=== PATIENT | female | born 1930 | race Caucasian/White ===

== ENCOUNTER 2017-09-17 16:16 | Emergency (ER) | payer OTHER ==
[~2017-09-17] VITALS: Ht 157.5 cm; Wt 48.0 kg
[~2017-09-17 16:16] MED LIST: ALT10 PO; AMLO-110 PO; ASPEC325 PO; CALC-354 PO; CLOP1TAB15 PO; DXY100 PO; FLUT0.0529 NAE; HYDC25 PO; LEVO88TA PO; LORA0.5T12 PO; LPT/40 PO; LXP10 PO; METO50TA16 PO; NITR0.4S UT; POTA10CA28 PO
[2017-09-17 16:27] VITALS: TEMP 37.2; Ht 157.5 cm; Wt 48.0 kg
[2017-09-17 16:31] VITALS: O2SAT 96
[2017-09-17 16:51] LABS: HEMATOCRIT 43.7 % (37-47); MEAN CELL VOLUME 95.8 fL (80-100); MEAN CORPUSCULAR HEMOGLOBIN 32.7 pg (25-34); MEAN CORPUSCULAR HGB CONC 34.1 g/dl (32-36); MEAN PLATELET VOLUME 11.1 fL (7.4-10.4); PLATELET COUNT 241 K/uL (130-400); RED BLOOD COUNT 4.56 M/uL (4.2-5.4); WHITE BLOOD COUNT 12.11 K/uL (4.8-10.8)
--- NOTE | 2017-09-17 16:57 | DIAGNOSTIC IMAGING REPORT ---
CHEST ONE VIEW PORTABLE CLINICAL HISTORY: EVALUATE ALTERED MENTAL STATUS/WEAKNESS COMPARISON STUDY: 07/29/2015 FINDINGS: Diffuse interstitial change throughout both hemithoraces considered chronic. Prior median sternotomy. No evidence for significant cardiac enlargement. Diaphragms smooth. IMPRESSION: Chronic postoperative and chronic interstitial change. No acute process. The above report was generated using voice recognition software. It may contain grammatical, syntax or spelling errors. Electronically signed by: Paulo Irene M.D. 09/17/2017 4:56 PM Dictated Date/Time: 09/17/2017 4:55 PM
[2017-09-17 17:15] LABS: BUN/CREATININE RATIO 23.6 (10-20); CALCIUM 8.7 mg/dl (8.5-10.1); CREATININE 0.85 mg/dl (0.60-1.20); POTASSIUM 3.6 mmol/L (3.5-5.1)
[2017-09-17 17:26] LABS: ALB/GLOB RATIO 0.8 (0.9-2)
--- NOTE | 2017-09-17 17:37 | EMERGENCY ROOM VISIT NOTE ---
History Report prepared by Danilo: Rusty Fu Under the Supervision of: Dr. Suleiman Hinton M.D. First contact with patient: 16:26 Chief Complaint: PALPITATIONS Stated Complaint: PALPITATION, NUMBNESS IN L ARM History of Present Illness The patient is a 87 year old female who presents to the Emergency Room with complaints of an episode of heart palpations occurring 2.5 hours ago. Her palpitations improved en route to the ED. She estimates that her palpitations were present for about two hours. The patient states that she also experienced tingling in her back, shoulders and bilateral arms as well as SOB during the episode. She states that she was sitting and watching TV when her symptoms began. The patient has a history of similar symptoms with uncertain cause. She states that her heart rate did not feel irregular. She has a history of CAD, carotid stenosis, OR, CABG, and HTN. The patient states that she has had some generalized weakness over the past few days. Pre-hospital ECG performed by EMS team demonstrates a fib with a rate of 107 bpm. Diffuse non-specific change and LVH seen. No acute ischemic changes seen. Source of History: patient Onset: 2.5 hours ago Symptom Intensity: about two hours Quality: other (heart palpitations) Timing: other (episode) Associated Symptoms: + SOB, + weakness (generalized ) Note: Additional symptoms: bilateral arm tingling. Review of Systems See HPI for pertinent positives & negatives. A total of 10 systems reviewed and were otherwise negative. Past Medical & Surgical Medical Problems: (1) Asthma (2) Bowel obstruction (3) CAD (coronary artery disease) (4) Carotid stenosis, non-symptomatic (5) Cervical osteoarthritis (6) History of open heart surgery (7) Hyperlipidemia (8) Hypertension (9) Hypothyroidism (10) Osteoporosis (11) Pneumonia Surgical Problems: (1) Hx of CABG (2) S/P appendectomy (3) S/P coronary artery stent placement (4) S/p decompression of small bowel Family History No pertinent family history stated. Social History Smoking Status: Never Smoker Marital Status: Current/Historical Medications Scheduled Amlodipine (Norvasc), 5 MG PO DAILY Atorvastatin (Lipitor), 40 MG PO DAILY Calcium Carbonate-Cholecalcife (Caltrate 600+D), 1 TABLET PO BID Clopidogrel (Plavix), 75 MG PO DAILY Doxycycline Hyclate (Doxycycline Hyclate), 1 CAP PO BID Escitalopram Oxalate (Escitalopram Oxalate), 5 MG PO QAM Hydrochlorothiazide (Hydrochlorothiazide), 1 TAB PO DAILY Metoprolol Tartrate (Lopressor) (Lopressor), 100 MG PO BID Nitroglycerin (Nitrostat), 0.4 MG UT PRN Potassium Chloride (Micro-K Ext Rel), 20 MEQ PO DAILY Ramipril (Ramipril), 1 CAP PO DAILY Scheduled PRN Lorazepam (Lorazepam), 0.5 MG PO TID PRN Miscellaneous Medications Aspirin (Aspirin Ec), 325 MG PO Fluticasone Propionate (Nasal) (Flonase Allergy Relief) Allergies Coded Allergies: Vanilla (Unverified Allergy, Severe, ALL CANDLES - CANT BREATHE, 09/17/17) Nitrofurantoin (Verified Allergy, Unknown, -, 09/17/17) Tetanus Toxoid (Verified Allergy, Unknown, -, 09/17/17) Uncoded Allergies: ? WATER PILL (Allergy, Unknown, 05/24/04) Physical Exam Vital Signs Date Time Temp Pulse Resp B/P (MAP) Pulse Ox O2 Delivery O2 Flow Rate FiO2 09/17/17 19:23 52 20 148/81 96 Room Air 09/17/17 18:11 60 20 172/87 96 Room Air 09/17/17 16:32 66 09/17/17 16:31 96 Room Air 09/17/17 16:27 37.2 64 18 177/79 96 Room Air Physical Exam GENERAL: Patient is in no acute distress. HEENT: No acute trauma, normocephalic atraumatic, mucous membranes moist, no nasal congestion, no scleral icterus. NECK: No stridor, no adenopathy, no meningismus, trachea is midline. LUNGS: Crackles at the right base. No wheezing. Breath sounds equal. No respiratory distress. HEART: 2/6 systolic murmur with an irregular rhythm and a normal rate. ABDOMEN: Soft, nontender, bowel sounds positive, no hernias, no peritonitis. EXTREMITIES: No cyanosis or edema, full range of motion of all the joints without pain or difficulty, no signs for acute trauma. NEUROLOGIC: Oriented x 3, no acute motor or sensory deficits, no focal weakness. SKIN: No rash, no jaundice, no diaphoresis. Medical Decision & Procedures ER Provider Diagnostic Interpretation: Radiology results as stated below per my review and radiologist interpretation: CHEST ONE VIEW PORTABLE FINDINGS: Diffuse interstitial change throughout both hemithoraces considered chronic. Prior median sternotomy. No evidence for significant cardiac enlargement. Diaphragms smooth. IMPRESSION: Chronic postoperative and chronic interstitial change. No acute process. The above report was generated using voice recognition software. It may contain grammatical, syntax or spelling errors. Electronically signed by: Paulo Irene M.D. 09/17/2017 4:56 PM Laboratory Results 09/17/17 16:40 Red Blood Count 4.56, Mean Corpuscular Volume 95.8, Mean Corpuscular Hemoglobin 32.7, Mean Corpuscular Hemoglobin Concent 34.1, Mean Platelet Volume 11.1, Neutrophils (%) (Auto) 42.0, Lymphocytes (%) (Auto) 46.2, Monocytes (%) (Auto) 8.3, Eosinophils (%) (Auto) 3.1, Basophils (%) (Auto) 0.2, Neutrophils # (Auto) 5.07, Lymphocytes # (Auto) 5.60, Monocytes # (Auto) 1.00, Eosinophils # (Auto) 0.38, Basophils # (Auto) 0.03 09/17/17 16:40 Test 09/17/17 16:40 09/17/17 17:40 09/17/17 18:44 White Blood Count 12.11 K/uL (4.8-10.8) Red Blood Count 4.56 M/uL (4.2-5.4) Hemoglobin 14.9 g/dL (12.0-16.0) Hematocrit 43.7 % (37-47) Mean Corpuscular Volume 95.8 fL (80-100) Mean Corpuscular Hemoglobin 32.7 pg (25-34) Mean Corpuscular Hemoglobin Concent 34.1 g/dl (32-36) Platelet Count 241 K/uL (130-400) Mean Platelet Volume 11.1 fL (7.4-10.4) Neutrophils (%) (Auto) 42.0 % Lymphocytes (%) (Auto) 46.2 % Monocytes (%) (Auto) 8.3 % Eosinophils (%) (Auto) 3.1 % Basophils (%) (Auto) 0.2 % Neutrophils # (Auto) 5.07 K/uL (1.4-6.5) Lymphocytes # (Auto) 5.60 K/uL (1.2-3.4) Monocytes # (Auto) 1.00 K/uL (0.11-0.59) Eosinophils # (Auto) 0.38 K/uL (0-0.5) Basophils # (Auto) 0.03 K/uL (0-0.2) RDW Standard Deviation 46.3 fL (36.4-46.3) RDW Coefficient of Variation 13.4 % (11.5-14.5) Immature Granulocyte % (Auto) 0.2 % Immature Granulocyte # (Auto) 0.03 K/uL (0.00-0.02) Nucleated RBC Absolute Count (auto) 0.06 K/uL (0-0) Nucleated Red Blood Cells % 0.5 % Anion Gap 6.0 mmol/L (3-11) Est Creatinine Clear Calc Drug Dose 34.7 ml/min Estimated GFR () 70.9 Estimated GFR (Non- 61.2 BUN/Creatinine Ratio 23.6 (10-20) Calcium Level 8.7 mg/dl (8.5-10.1) Magnesium Level 2.0 mg/dl (1.8-2.4) Total Bilirubin 0.3 mg/dl (0.2-1) Aspartate Amino Transf (AST/SGOT) 20 U/L (15-37) Alanine Aminotransferase (ALT/SGPT) 32 U/L (12-78) Alkaline Phosphatase 113 U/L (45-117) Total Protein 7.3 gm/dl (6.4-8.2) Albumin 3.2 gm/dl (3.4-5.0) Globulin 4.1 gm/dl (2.5-4.0) Albumin/Globulin Ratio 0.8 (0.9-2) Thyroid Stimulating Hormone (TSH) 3.000 uIu/ml (0.300-4.500) Free Thyroxine 1.40 ng/dl (0.80-1.60) Prothrombin Time 10.5 SECONDS (9.0-12.0) Prothromb Time International Ratio 1.0 (0.9-1.1) Activated Partial Thromboplast Time 24.3 SECONDS (21.0-31.0) Partial Thromboplastin Ratio 0.9 Bedside Troponin I < 0.030 ng/ml (0-0.045) Laboratory results reviewed by me. ECG Indication: palpitations Rate (beats per minute): 62 Rhythm: sinus rhythm Findings: PVC, other (Non-specific ST changes diffusely. LVH. ) Change: Pre-hospital ECG performed by EMS team demonstrates a fib with a rate of 107 bpm. Diffuse non-specific change and LVH seen. No acute ischemic changes seen. ED Course 162: The patient was evaluated in room A2. A complete history and physical exam was performed. 1849: I checked in on the patient. She is resting comfortably and has no complaints. 1914: Reevaluated the patient. Discussed results and discharge instructions: she verbalized understanding and agreement. The patient is ready for discharge. Medical Decision The patient is a 87 year old female who presents to the ED with complaints of an episode of heart palpitations. Differential diagnoses considered include A- fib/A-flutter, electrolyte imbalance, anemia, cardiac ischemia, and OR. There is a mild leukocytosis, this could be consistent with infection or just the stress of today's events. No worrisome anemia. No significant electrolyte abnormalities, kidney failure or hepatitis. There was no coagulopathy. The patient appears to be in a euthyroid state. Chest film shows some chronic findings, no CHF or pneumonia. EKG shows a sinus rhythm with a PVC. There was LVH present. Cardiac enzyme testing 2 is not consistent with acute cardiac injury. The EKG performed by EMS prior to arrival at the ED does demonstrate a rapid A. fib. The patient has been here for several hours. There has been no recurrence of her A. fib. She feels at baseline. I discussed the case with cardiology on- call. No change in her medications for now. She will be seen in the cardiology office this week. The patient was encouraged to return here for any worsening symptoms or return of symptoms. I do think the rapid heart rate caused her shortness of breath and shoulder/back numbness. Medication Reconcilliation Current Medication List: was personally reviewed by me Blood Pressure Screening Patient's blood pressure: Elevated blood pressure Blood pressure disposition: Referred to PCP Consults Time Called: [phone] Consulting Physician: Dr. Judd -Cardiology Returned Call: [phone] Discussed the patient's case. Dr. Judd feels that the patient would be safe to follow up as an outpatient if her laboratory studies appear okay. Impression Primary Impression: Rapid atrial fibrillation Scribe Attestation The scribe's documentation has been prepared under my direction and personally reviewed by me in its entirety. I confirm that the note above accurately reflects all work, treatment, procedures, and medical decision making performed by me. Departure Information Dispostion Home / Self-Care Referrals Jennifer Khanna M.D. (PCP) Forms HOME CARE DOCUMENTATION FORM, IMPORTANT VISIT INFORMATION, WORK / SCHOOL INSTRUCTIONS Patient Instructions My [facility] Additional Instructions all meds the same for now call cardiology for an appt this week return if worsening
[2017-09-17] MEDS ORDERED: HYDR12.55 PO (18:05)
[2017-09-17] MEDS ORDERED: RAMI10CA PO (18:05)
[2017-09-17] MEDS ORDERED: FLUT0.15 (18:05)
[2017-09-17] MEDS ORDERED: ASPI325T39 PO (18:05)
[2017-09-17 18:18] LABS: PARTIAL THROMBOPLASTIN RATIO 0.9; PROTHROMBIN TIME (PATIENT) 10.5 SECONDS (9.0-12.0)
[2017-09-17 19:23] VITALS: BP 148/81; PULSE 52; O2SAT 96
[2017-09-17 20:59] LABS: BASO % 0.2 %; BASO ABS # 0.03 K/uL (0-0.2); COMPLETE YES; EOS % 3.1 %; IG% 0.2 %; LYMPH % 46.2 %; MONO % 8.3 %
== END 2017-09-17 19:35 | disposition home or self-care (01) ==
LOC: EDBD 16:16 → C.EDA 16:17
DX: I48.91 Unspecified atrial fibrillation (principal); J45.909 Unspecified asthma, uncomplicated; I25.10 Atherosclerotic heart disease of native coronary artery without angina pectoris; E78.5 Hyperlipidemia, unspecified; I10 Essential (primary) hypertension; E03.9 Hypothyroidism, unspecified; M81.0 Age-related osteoporosis without current pathological fracture